=== PATIENT | male | born 1980 | race Caucasian/White ===

== ENCOUNTER 2017-06-20 11:36 | Emergency (ER) | payer MEDICAID ==
[2017-06-20] MEDS: ONDANSETRON 4 MG INJ IV (11:53)
[2017-06-20] MEDS: morphine 4 MG/ML VIAL IV (11:53)
[2017-06-20] MEDS: HYDROmorphONE 0.5 MG/0.5 ML SYG IV (12:19)
[2017-06-20] MEDS: PROPOFOL 200 MG INJ IV (12:47)
== END 2017-06-20 14:00 | disposition home or self-care (01) ==
LOC: E/R 11:36
DX: S52.502A Unspecified fracture of the lower end of left radius, initial encounter for closed fracture (principal); R40.2142 Coma scale, eyes open, spontaneous, at arrival to emergency department; R40.2252 Coma scale, best verbal response, oriented, at arrival to emergency department; R40.2362 Coma scale, best motor response, obeys commands, at arrival to emergency department; W18.39XA Other fall on same level, initial encounter; Y92.322 Soccer field as the place of occurrence of the external cause
CPT/HCPCS: 25565; 73090; 73110-LT; 94770; 96374; 96375; 99285-25